=== PATIENT | female | born 1970 | race Caucasian/White ===

== ENCOUNTER 2021-01-25 21:50 | Emergency (ER) | payer OTHER ==
[~2021-01-25] VITALS: Ht 165.1 cm; Wt 88.5 kg
[2021-01-25 21:54] VITALS: BP 162/86
[2021-01-25] MEDS ORDERED: proparacaine 0.5% ophthalmic drops 15ml RIGHTEYE ONE (22:05)
== END 2021-01-25 23:37 | disposition home or self-care (01) ==
LOC: ER 23:13
DX: T15.91XA Foreign body on external eye, part unspecified, right eye, initial encounter (principal); Z91.040 Latex allergy status; X58.XXXA Exposure to other specified factors, initial encounter; Y93.89 Activity, other specified; Y92.89 Other specified places as the place of occurrence of the external cause; Y99.8 Other external cause status
CPT/HCPCS: 99283

== ENCOUNTER 2021-01-26 00:13 | Emergency (ER) | payer OTHER ==
[~2021-01-26] VITALS: Ht 165.1 cm; Wt 90.9 kg
[2021-01-26 00:18] VITALS: BP 186/108
[2021-01-26] MEDS ORDERED: diphenhydrAMINE 25mg capsule PO ONE (01:10)
[2021-01-26] MEDS ORDERED: proparacaine 0.5% ophthalmic drops 15ml RIGHTEYE ONE (01:10)
[2021-01-26] MEDS ORDERED: HYDROcodone/acetaminophen 5mg/325mg tablet PO ONE (01:10)
--- NOTE | 2021-01-26 02:16 | NUR ---
Right eye flushed with copius amounts of normal saline under pressure to remove foreign body under right eyelid. Foreign body flushed out.
== END 2021-01-26 02:28 | disposition home or self-care (01) ==
LOC: ER 00:14
DX: T15.91XD Foreign body on external eye, part unspecified, right eye, subsequent encounter (principal); X58.XXXA Exposure to other specified factors, initial encounter; Y93.89 Activity, other specified; Y92.89 Other specified places as the place of occurrence of the external cause; Y99.8 Other external cause status
CPT/HCPCS: 99284; Q0163